=== PATIENT | female | born 1970 | race Caucasian/White ===

== ENCOUNTER → 2016-12-19 | Outpatient (CLI) | payer OTHER | LOC: MAMO 12:22 | DX: Z12.31 Encounter for screening mammogram for malignant neoplasm of breast (principal) | CPT/HCPCS: G0202 ==

== ENCOUNTER → 2017-01-25 | Outpatient (CLI) | payer OTHER | LOC: EMI 13:00 | DX: M54.40 Lumbago with sciatica, unspecified side (principal); M51.37 Other intervertebral disc degeneration, lumbosacral region; M47.817 Spondylosis without myelopathy or radiculopathy, lumbosacral region; M99.43 Connective tissue stenosis of neural canal of lumbar region; M99.4 Connective tissue stenosis of neural canal; M51.27 Other intervertebral disc displacement, lumbosacral region | CPT/HCPCS: 72148 ==

== ENCOUNTER → 2017-07-03 | Outpatient (CLI) | payer OTHER | LOC: RAD 08:26 | DX: M54.2 Cervicalgia (principal); M47.892 Other spondylosis, cervical region | CPT/HCPCS: 72050 ==

== ENCOUNTER → 2021-09-02 | Outpatient (CLI) | payer OTHER ==
[~2021-09-02] MED LIST: CELEXA20 MG PO; COLACE100 MG PO; CYANOCOBAL1000 MCG/1 INJ; FEOSOL325 MG PO; IBUPROFEN600 MG PO; NORCO 5-325 TA1 EACH PO; SYNTHROID25 MCG PO; ZOFRAN ODT 4 MG4 MG SL
== END ==
LOC: MAMO 13:37
DX: Z12.13 Encounter for screening for malignant neoplasm of small intestine (principal)
CPT/HCPCS: 77063; 77067